=== PATIENT | female | born 1980 | race Two or more races ===

== ENCOUNTER 2019-08-28 23:33 | Emergency (ER) | payer OTHER ==
[~2019-08-28] VITALS: Ht 144.8 cm; Wt 79.0 kg
--- NOTE | 2019-08-28 23:56 | NUR ---
C/O LOWER ABD PAIN X1 DAY, ALSO C/O LOW BACK PAIN X1 MONTH. PT REPORTS GOING TO UC TODAY IN [facility] WAS TOLD SHE HAS HEMATURIA AND GLUCOSE IN HER URINE.
[2019-08-29 00:24] LABS: BASOPHILS # (AUTO) 0.09 x10^3/uL (0-0.1); BASOPHILS % (AUTO) 1 % (0-1); EOSINOPHILS % (AUTO) 2 % (1-7); LYMPHOCYTES % (AUTO) 16 % (22-44); MD NO; MEAN CORPUSCULAR HEMOGLOBIN 29.7 pg (27.0-34.8); MEAN CORPUSCULAR HGB CONC 33.2 g/dL (32.4-35.8); MEAN CORPUSCULAR VOLUME 89.7 fL (80-100); MEAN PLATELET VOLUME 8.1 fL (7.4-10.4); MONOCYTES # (AUTO) 0.78 x10^3/uL (0.2-0.8); MONOCYTES % (AUTO) 6 % (2-9); NEUTROPHILS # (AUTO) 9.58 x10^3/uL (1.8-6.8); NEUTROPHILS % (AUTO) 75 % (42-75); PLATELET COUNT 501 x10^3/uL (130-400); RED CELL DISTRIBUTION WIDTH 14.4 % (9.6-15.2)
[2019-08-29 00:29] LABS: ALANINE AMINOTRANSFERASE 29 U/L (12-78); ALBUMIN 3.9 g/dL (3.4-5.0); ANION GAP 5 mmol/L (5-15); CALCIUM 8.7 mg/dL (8.5-10.1); CHLORIDE 107 mmol/L (98-107); CREATININE 0.83 mg/dL (0.55-1.02)
[2019-08-29 00:30] LABS: CULTURE INDICATED? YES; MICROSCOPIC INDICATED
[2019-08-29] MEDS ORDERED: KETOROLAC 30 MG/1 ML IVPush ONE (00:30)
[2019-08-29 00:32] LABS: ALKALINE PHOSPHATASE 83 U/L (45-117); BILIRUBIN,TOTAL 0.6 mg/dL (0.2-1.0)
[2019-08-29 01:08] VITALS: BP 101/58
--- NOTE | 2019-08-29 01:09 | NUR ---
RESTING ON GURNEY, NO DISTRESS NOTED. VSS.
== END 2019-08-29 01:31 | disposition home or self-care (01) ==
LOC: ED 08-29
DX: N30.00 Acute cystitis without hematuria (principal); I10 Essential (primary) hypertension; E11.9 Type 2 diabetes mellitus without complications
CPT/HCPCS: 36415; 80053; 81001; 83690; 84703; 85025; 87077; 87086; 87186; 93005; 99284

== ENCOUNTER 2020-04-11 11:57 | Emergency (ER) | payer OTHER, BC ==
[~2020-04-11] VITALS: Ht 144.8 cm; Wt 70.9 kg
--- NOTE | 2020-04-11 13:11 | NUR ---
PT TO RM FROM LOBBY AT THIS TIME.
[2020-04-11] MEDS ORDERED: FAMOTIDINE 20 MG TABLET PO ONE (14:00)
[2020-04-11] MEDS ORDERED: FAMOTIDINE 20 MG TABLET ONE (14:05)
--- NOTE | 2020-04-11 14:35 | NUR ---
TASK RN NOTE: PT SITTING UP IN BED SPEAKING IN FULL SENTENCES, NO WOB NOTED. RESPIRATIONS EVEN AND UNLABORED ON RA. PT REPORTS SWELLING IN FACE, BACK OF NECK, TORSO, HANDS. PT REPORTS SOME RELIEF FROM ITCHING WITH ORAL MEDICATIONS. AWAITING FURTHER ORDERS. ERMD IN TO ASSESS PT.
[2020-04-11 15:05] VITALS: BP 118/72
== END 2020-04-11 15:07 | disposition home or self-care (01) ==
LOC: ED 14:56
DX: L50.9 Urticaria, unspecified (principal); I10 Essential (primary) hypertension; E11.9 Type 2 diabetes mellitus without complications
CPT/HCPCS: 99284; J7512; Q0177